=== PATIENT | male | born 1975 | race Caucasian/White ===

== ENCOUNTER 2022-09-30 07:06 | Day surgery (SDC) | payer BC ==
[~2022-09-30 07:06] MED LIST: Lactated Ringers 1,000 ML IV SCH; Sodium Chloride 0.9% 10 ML Syringe FLUSH PRN
[2022-09-30] MEDS ORDERED: HYDROmorphone 0.5 MG/0.5 ML Syringe ONE (07:15)
[2022-09-30] MEDS ORDERED: fentaNYL 100 MCG/2 ML SDV ONE ×2 (07:15→08:37)
[2022-09-30] MEDS ORDERED: Propofol 200 MG/20 ML SDV ONE ×2 (07:16→08:38)
[2022-09-30] MEDS ORDERED: Bupivacaine 0.25% 10 ML SDV INJECT ONE (08:41)
[2022-09-30] MEDS ORDERED: Lidocaine 1% 5 ML VIAL INJECT ONE (08:42)
== END 2022-09-30 11:55 | disposition home or self-care (01) ==
LOC: LL.SDS 07:06
PROVIDERS: ATTEND Surgery
DX: K40.90 Unilateral inguinal hernia, without obstruction or gangrene, not specified as recurrent (principal); F17.210 Nicotine dependence, cigarettes, uncomplicated; Z79.899 Other long term (current) drug therapy; Z98.890 Other specified postprocedural states
CPT/HCPCS: C1781; J3490; J7120